=== PATIENT | female | born 1980 | race African-American/Black ===

== ENCOUNTER 2018-04-20 12:40 | Emergency (ER) | payer MEDICAID, OTHER ==
[~2018-04-20] VITALS: Ht 160 cm; Wt 102.8 kg
[2018-04-20] MEDS ORDERED: DEXAMETHASONE 4 MG TABLET ONE (13:11)
[2018-04-20] MEDS ORDERED: KETOROLAC 30 MG/1 ML ONE (14:25)
[2018-04-20] MEDS ORDERED: KETOROLAC 30 MG/1 ML IM ONE (14:30)
[2018-04-20 14:33] LABS: MICROSCOPIC NOT IND
[2018-04-20] MEDS ORDERED: LISI-170 PO (14:35)
[2018-04-20 14:37] LABS: CULTURE INDICATED? NO
[2018-04-20 15:04] LABS: BASOPHILS # (AUTO) 0.04 x10^3/uL (0-0.1); BASOPHILS % (AUTO) 0 % (0-1); EOSINOPHILS # (AUTO) 0.07 x10^3/uL (0-0.4); EOSINOPHILS % (AUTO) 1 % (1-7); LYMPHOCYTES # (AUTO) 3.53 x10^3/uL (1-3.4); LYMPHOCYTES % (AUTO) 42 % (22-44); MD NO; MEAN CORPUSCULAR HEMOGLOBIN 29.4 pg (27.0-34.8); MEAN CORPUSCULAR HGB CONC 33.6 g/dL (32.4-35.8); MEAN CORPUSCULAR VOLUME 87.4 fL (80-100); MEAN PLATELET VOLUME 8.7 fL (7.4-10.4); MONOCYTES # (AUTO) 0.48 x10^3/uL (0.2-0.8); MONOCYTES % (AUTO) 6 % (2-9); NEUTROPHILS # (AUTO) 4.38 x10^3/uL (1.8-6.8); NEUTROPHILS % (AUTO) 52 % (42-75); PLATELET COUNT 307 x10^3/uL (130-400); RED BLOOD COUNT 4.88 x10^6/uL (3.82-5.3); RED CELL DISTRIBUTION WIDTH 14.4 % (9.6-15.2)
[2018-04-20 15:12] LABS: ALBUMIN 3.9 g/dL (3.4-5.0); ANION GAP 8 mmol/L (5-15); CALCIUM 8.9 mg/dL (8.5-10.1); CHLORIDE 105 mmol/L (98-107)
[2018-04-20 15:18] LABS: CREATININE 0.84 mg/dL (0.55-1.02)
[2018-04-20 16:30] VITALS: BP 153/87
== END 2018-04-20 16:43 | disposition home or self-care (01) ==
LOC: EDBD 12:40 → ED 16:30
DX: R10.9 Unspecified abdominal pain (principal); I10 Essential (primary) hypertension; Z91.14 Patient's other noncompliance with medication regimen
CPT/HCPCS: 36415; 76770; 80048; 81003; 82040; 84703; 85025; 96372; 99284; J1885